=== PATIENT | male | born 2000 | race Caucasian/White ===

== ENCOUNTER 2021-01-12 16:09 | Emergency (ER) | payer SELFPAY ==
--- NOTE | ~2021-01-12 | CT_ITS ---
EXAMINATION: CT abdomen pelvis w con DATE: 01/12/2021 18:20 INDICATION: Right lower quadrant abdominal pain, loss of appetite for one week TECHNIQUE: Computed tomography (CT) of the abdomen and pelvis was performed with 100 cc Omnipaque 350 intravenous contrast. Automated exposure control and iterative reconstruction technique were employe d. Exam dose: 577.82 mGy-cm total exam DLP. COMPARISON: None. FINDINGS: Normal heart size. No pericardial or pleural effusion. The lung bases are clear. The liver, gallbladder, bile ducts, spleen, pancreas, pancreatic duct, and adrenal glands are unremar kable. Occasional small renal cysts are noted. No urinary tract calculus or hydroureteronephrosis. Normal caliber of the abdominal aorta. No intraperitoneal or retroperitoneal or pelvic mass lesion or adenopathy or ascites. Normal appendix. No bowel obstruction, bowel wall thickening and pneumatosis or intraperitoneal free air. Very small fat-containing umbilical hernia. Included skeletal structures are unremarkable. IMPRESSION: Normal appendix Reviewed, dictated and finalized at [facility] Reviewed, dictated and finalized at [facility]. IMPRESSION: Normal appendix
[2021-01-12 16:13] VITALS: PULSE 109; RESP 16; TEMP 36.7; O2SAT 99
--- NOTE | 2021-01-12 16:33 | ED.GENADULT ---
HPI - General Adult General Chief complaint: Abdominal Pain Stated complaint: RLQ ABD PAIN, NAUSEA Time Seen by Provider: 01/12/21 16:16 Source: patient, family and RN notes reviewed Mode of arrival: ambulatory Limitations: no limitations History of Present Illness HPI narrative: Patient is a 21-year-old male who presents to emergency department for evaluation of right lower quadrant abdominal pain that began over the last 2 days was seen by primary care today and referred to emergency department for concern for appendicitis patient notes that he last ate around 1:00 today a sandwich patient on arrival denies any diarrhea or urinary symptoms or similar occurrence in the past pain is localized to the right lower quadrant has not taken anything for his symptoms Related Data Allergies Allergy/AdvReac Type Severity Reaction Status Date / Time No Known Allergies Allergy Verified 06/29/19 08:48 Review of Systems Review of Systems: All systems reviewed & are unremarkable except as noted in HPI and below PMFSH Past Medical History Medical History History of gastroesophageal reflux (GERD) History of migraine Social History Social History Smoking status: Never smoker Substance use: never Exam Narrative: Exam Narrative: GENERAL: Well-appearing, well-nourished, and in no acute distress. HEAD: Normocephalic, atraumatic. EYES: PERRLA and EOMI. ENT: Nares clear, no rhinorrhea or epistaxis. Mucous membranes moist. CHEST: Clear to auscultation. No respiratory distress. No wheezes rales or rhonchi HEART: Regular rate and rhythm. No murmur heard. Normal peripheral pulses. ABDOMEN: Soft, right lower quadrant tenderness to palpation, nondistended, normal active bowel sounds. EXTREMITIES: Normal range of motion. No edema. SKIN: Warm, dry, no rash. NEURO: No focal deficits. Alert and oriented x3. PSYCH: Normal mood and affect. Course Course Emergency Course: Patient evaluated in the emergency department for right lower quadrant abdominal tenderness will be sent home with no high risks findings in the exam unsure as to theology of his symptoms he is afebrile nontoxic-appearing in no distress agreeing to follow with his primary care again for further evaluation Vital Signs Vital signs: Vital Signs Temperature 98.1 F 01/12/21 16:13 Pulse Rate 109 H 01/12/21 16:13 Respiratory Rate 16 01/12/21 16:13 Pulse Oximetry 99 01/12/21 16:13 Temperature 98.1 F 01/12/21 16:13 Pulse Rate 109 H 01/12/21 16:13 Respiratory Rate 16 01/12/21 16:13 Pulse Oximetry 99 01/12/21 16:13 Medical Decision Making MDM Narrative Medical decision making narrative: Patient presented with abdominal pain right lower quadrant in nature will be discharged home with outpatient follow-up with primary care aware of case findings treatment plan and diagnosis feeling better with interventions Vital Signs Vital Signs: Vital Signs Temperature 98.1 F 01/12/21 16:13 Pulse Rate 109 H 01/12/21 16:13 Respiratory Rate 16 01/12/21 16:13 Pulse Oximetry 99 01/12/21 16:13 Temperature 98.1 F 01/12/21 16:13 Pulse Rate 109 H 01/12/21 16:13 Respiratory Rate 16 01/12/21 16:13 Pulse Oximetry 99 01/12/21 16:13 Lab Data Result diagrams: 01/12/21 16:36 01/12/21 16:36 Labs: Lab Results 01/12/21 01/12/21 01/12/21 Range/Units 16:36 16:36 17:41 WBC 6.1 (4.5-10.0) K/mm3 RBC 5.46 (4.6-6.20) M/mm3 Hgb 16.0 (14.0-18.0) g/dL Hct 48.8 (42.0-52.0) % MCV 89.4 (80-100) fl MCH 29.3 (26-34) pg MCHC 32.8 (32-36) g/dl RDW 12.2 (11.5-14.5) % Plt Count 235 (150-375) k/mm3 MPV 9.6 (7.4-10.4) fl Immature Gran % (Auto) 0.2 (0-0.5) % Neut % (Auto) 61.1 (45.5-73.1) % Lymph % (Auto) 28.6 (18.3-44.2) % [place] % (Auto) 8.4 (2.6-8.5
[2021-01-12 16:45] LABS: Basophils Percent Auto 0.2 % (0.2-1.2); Eosinophils Absolute Auto 0.1 K/mm3 (0-0.3); Eosinophils Percent Auto 1.5 % (0-4.4); Hematocrit 48.8 % (42.0-52.0); Immature Granulocyte Absolute 0.01 K/mm3 (0.00-0.031); Immature Granulocyte Percent A 0.2 % (0-0.5); Lymphocytes Absolute Auto 1.74 K/mm3 (0.9-3.2); Lymphocytes Percent Auto 28.6 % (18.3-44.2); Mean Corpuscular HGB Conc 32.8 g/dl (32-36); Mean Corpuscular Hemoglobin 29.3 pg (26-34); Mean Corpuscular Volume 89.4 fl (80-100); Mean Platelet Volume 9.6 fl (7.4-10.4); Monocytes Absolute Auto 0.5 K/mm3 (0.1-0.6); Monocytes Percent Auto 8.4 % (2.6-8.5); Neutrophils Absolute Auto 3.7 K/mm3 (1.3-6.7); Neutrophils Percent Auto 61.1 % (45.5-73.1); Platelet Count Result 235 k/mm3 (150-375); Red Blood Count 5.46 M/mm3 (4.6-6.20); Red Cell Distribution Width 12.2 % (11.5-14.5); White Blood Count 6.1 K/mm3 (4.5-10.0)
[2021-01-12 17:19] LABS: Alanine Aminotransferase 27 U/L (4-50); Albumin Level 4.8 g/dL (3.5-5.1); Alkaline Phosphatase 64 U/L (38-126); Anion Gap 10 mmol/L (8-16); Aspartate Amino Transferase 36 U/L (17-59); Bilirubin,Total 0.5 mg/dL (0.2-1.3); Blood Urea Nitrogen 13 mg/dL (9-20); Calcium 9.9 mg/dL (8.4-10.2); Carbon Dioxide 28 mmol/L (22-30); Chloride 103 mmol/L (98-107); Estimated CRCL calculation 112 ml/min; Estimated Glomerular Filt Rate > 60; Glucose 77 mg/dL (75-110); Lipase 86 U/L (23-300); Sodium 141 mmol/L (137-145)
[2021-01-12] MEDS: ONDANSETRON INJ 4 MG/2 ML VIAL IV PUSH (17:52)
[2021-01-12] MEDS: FAMOTIDINE 20 MG/2 ML VIAL IV PUSH (17:52)
[2021-01-12] MEDS: SODIUM CHLORIDE 0.9% IV 1,000 ML 999 ML IV CONT (17:58)
[2021-01-12 18:04] LABS: Add Urine Microscopic? NO; Appearance Urine Clear (Clear); Bilirubin Urine Negative (Negative); Blood Urine Negative (Negative); Color Urine Yellow (Yellow); Glucose Urine UA Negative (Negative); Ketones Urine Negative (Negative); Leukocyte Esterase Ur Negative LEU/UL (Negative); Mucus Urine Rare /lpf; Nitrate Urine Negative (Negative); Protein Urine Negative (Negative); RBC Urine 0-2 /hpf (0-2); Specific Grav Ur 1.023 (1.001-1.035); Squamous Epithelial Cell Urine Rare /hpf (Few); Urobilinogen Urine Negative mg/dL (<2.0); WBC Urine 0-3 /hpf
[2021-01-12 20:34] VITALS: BP 142/92; PULSE 84; RESP 16; O2SAT 100
== END 2021-01-12 20:35 | disposition home or self-care (01) ==
PROVIDERS: Emergency Medicine; Emergency Provider Emergency Medicine; PCP Emergency Medicine
DX: R10.31 Right lower quadrant pain (principal); K21.9 Gastro-esophageal reflux disease without esophagitis
CPT/HCPCS: 36415; 74177; 80053; 81003; 83690; 85025; 96365; 96375; 99284; J0131; J2405; J7030; Q9967

== ENCOUNTER 2022-05-11 12:08 | Emergency (ER) | payer OTHER, SELFPAY ==
[2022-05-11 12:22] VITALS: BP 121/76; PULSE 98; RESP 18; TEMP 36.4; O2SAT 99
--- NOTE | 2022-05-11 12:56 | ED.GENADULT ---
HPI - General Adult General Chief complaint: Upper Respiratory Infection Stated complaint: vomiting, loss of smell and taste, headache Time Seen by Provider: 05/11/22 12:50 Source: patient, RN notes reviewed and old records reviewed Mode of arrival: ambulatory Limitations: no limitations History of Present Illness HPI narrative: 22-year-old male who presents to [facility] care with complaints of vomiting, loss of smell and taste, body aches and headache which all started this morning at 0930. Patient reports that he has not been vaccinated for COVID or for flu reports no known exposure. Patient's denies any fevers, chills,or sweats, denies any shortness of breath or any cough. Patient wants to be tested for COVID, states that he felt fine yesterday. Onset (ago): hour(s) (this am) Related Data Allergies Allergy/AdvReac Type Severity Reaction Status Date / Time No Known Allergies Allergy Verified 06/29/19 08:48 Review of Systems Review of Systems: CONSTITUTIONAL: Denies malaise, no chills, sweats, or fever. EYES: Denies visual changes, redness, or discharge. ENT: Reports rhinorrhea, congestion,no sinus pain, otalgia and sore throat. CARDIOVASCULAR: Denies chest pain, palpitations, or edema. RESPIRATORY: no reported cough.? Denies dyspnea. GASTROINTESTINAL: Denies abdominal pain, positive nausea and vomiting, no diarrhea SKIN: Denies rash or itching. MUSCULOSKELETAL: Positive myalgia. NEUROLOGIC positive headache. All systems reviewed & are unremarkable except as noted in HPI and below PMFSH Past Medical History Medical History History of gastroesophageal reflux (GERD) History of migraine Social History Social History Smoking status: Never smoker Substance use: never Comments At time of signature, agree with nursing past medical, surgical, social and family history. There is no relevant family history pertinent to the presenting complaint Exam Narrative: GENERAL: Well-appearing, well-nourished, and in no acute distress. HEAD: Normocephalic EYES: PERRLA, conjunctivae clear ENT: Nares clear, turbinates edematous and erythematous, clear discharge. Mucous membranes moist. TM pearly maki with dull light reflex bilaterally; no tragal tenderness. Oropharynx erythematous without lesions. Tonsils not enlarged and without exudate, no drooling, no hoarseness, no trismus, uvula midline. NECK: Supple. No lymphadenopathy CHEST: Clear to auscultation, breath sounds equal. No wheezing, rhonchi, rales, or stridor. No respiratory distress, speaks in full sentences. HEART: Regular rate and rhythm. No murmur heard. SKIN: Warm, dry, no rash. NEURO: Alert and oriented x3. PSYCH: Normal mood and affect Course Course Emergency Course: Patient is aware of diagnosis, understands and agrees to treatment plan.? Anticipatory guidance given.? Patient agrees to follow-up as directed and is aware of reasons to seek care at the emergency department. Portions of this record may have been created with voice recognition software Level of Care: Express Care Visit Vital Signs Vital signs: Vital Signs Temperature 36.4 C L 05/11/22 12:22 Pulse Rate 98 05/11/22 12:22 Respiratory Rate 18 05/11/22 12:22 Blood Pressure 121/76 05/11/22 12:22 Pulse Oximetry 99 05/11/22 12:22 Oxygen Delivery Room Air 05/11/22 12:22 Temperature 36.4 C L 05/11/22 12:22 Pulse Rate 98 05/11/22 12:22 Respiratory Rate 18 05/11/22 12:22 Blood Pressure 121/76 05/11/22 12:22 Pulse Oximetry 99 05/11/22 12:22 Oxygen Delivery Room Air 05/11/22 12:22 Reviewed Medical Decision Making Differential Diagnosis Differential Diagnosis: URI, influenza, COVID, gastritis,viral syndrome Medical Records Medical records reviewed: Yes I reviewed the external patient's medical records. Vital Signs Vital Sign
[2022-05-11 19:42] LABS: SARS-CoV-2 RNA PCR Negative
== END 2022-05-11 13:26 | disposition home or self-care (01) ==
PROVIDERS: Emergency Provider Registered Nurse; PCP Emergency Medicine
DX: J06.9 Acute upper respiratory infection, unspecified (principal); Z20.822 Contact with and (suspected) exposure to COVID-19; K21.9 Gastro-esophageal reflux disease without esophagitis
CPT/HCPCS: 87426; 87804; 99213; C9803; G0463; U0003; U0005

== ENCOUNTER 2022-10-17 19:16 | Emergency (ER) | payer SELFPAY ==
[2022-10-17 19:23] VITALS: BP 116/76; PULSE 108; RESP 20; TEMP 37.9; O2SAT 99
--- NOTE | 2022-10-17 19:39 | ED.URI ---
HPI - URI/Sore Throat General Chief Complaint: Upper Respiratory Infection Stated Complaint: Fever/Bodyaches Time Seen by Provider: 10/17/22 19:40 Source: patient, RN notes reviewed and old records reviewed Mode of arrival: ambulatory Limitations: no limitations History of Present Illness HPI Narrative: 22-year-old male presents to the [facility] with his girlfriend with complaints of fever, congestion, body aches since yesterday. Took ibuprofen just prior to arrival. Onset (ago): day(s) (1) Related Data Home Medications Medication Instructions Recorded Confirmed albuterol 90 mcg/actuation aerosol mcg inhalation 10/17/22 inhaler Allergies Allergy/AdvReac Type Severity Reaction Status Date / Time No Known Allergies Allergy Verified 10/17/22 19:23 Review of Systems Review of Systems: All systems reviewed & are unremarkable except as noted in HPI and below Constitutional: Constitutional: Reports no additional constitutional complaints Eyes: Eyes: Reports no additional eye complaints ENT: Reports as per HPI Cardiovascular: Cardiovascular: Reports no additional cardiovascular complaints, Denies chest pain and Denies dyspnea Respiratory: Respiratory: Reports as per HPI, Denies chest congestion, Reports cough and Denies dyspnea Gastrointestinal: Gastrointestinal: Reports no additional gastrointestinal complaints, Denies abdominal pain, Denies nausea and Denies vomiting Musculoskeletal: Musculoskeletal: Reports no additional musculoskeletal complaints Integumentary/Breasts: Skin/Breast: Reports system reviewed and no additional complaints, except as docu Neurologic: Reports system reviewed and no additional complaints, except as documented Psychiatric: Psychiatric: Reports no additional psychiatric complaints Allergic/Immunologic: Allergic/Immunologic: Reports no additional allergic/immunologic complaints PMFSH Past Medical History Medical History History of gastroesophageal reflux (GERD) History of migraine Social History Social History Smoking status: Never smoker Substance use: never Comments At the time of my signature, I reviewed and agree with the nursing past medical, surgical, social, and family history. There is no relevant family history pertinent to the patient complaint. Exam Const: General: cooperative, no acute distress, well developed, alert, ill appearing acutely (Mild), poor hygiene, tired appearing, uncomfortable and well nourished Nutritional Appearance: well nourished Orientation/consciousness: patient oriented x3 Limitations: no limitations HENMT: Head: normal to inspection Ears: hearing grossly normal bilaterally and external ears normal Face/Nose/Sinus: Normal external nose present, Normal nares present, Normal nasal mucous membranes and turbinates present and normal facial exam Face and sinus: normal facial exam Mouth: Yes Normal oral and palatal mucosa present, Yes lip normal and Yes moist mucous membranes Throat: posterior oropharynx normal and uvula midline Eyes: General: appearance normal, both eyes and all related structures Alignment and Position: alignment normal Periorbital: periorbital findings normal Conjunctivae: conjunctivae normal Pupils: Equal, round and reactive pupils present EOM: EOMs intact bilaterally Neck: Neck: normal visual inspection, full ROM, no lymphadenopathy and no meningeal signs Chest: Chest palpation & inspection: normal inspection of the chest Resp: Effort & Inspection: normal respiratory effort and able to speak in complete sentences Auscultation: clear to auscultation bilaterally, no crackles, no rales, no rhonchi and no wheezes Cardio: Rate: regular rate Rhythm: regular rhythm Back/Spine/Pelvis: Cervical Spine: cervical ROM normal Thoracic/Lumbar Spine: No thoracic spinal tenderness Skin: General skin exam: myra
== END 2022-10-17 19:46 | disposition home or self-care (01) ==
PROVIDERS: Emergency Provider Nurse Practitioner; PCP Emergency Medicine
DX: U07.1 COVID-19 (principal)
CPT/HCPCS: 87081; 87426; 87804; 87880; 99213; C9803; G0463

== ENCOUNTER 2023-02-15 16:35 | Emergency (ER) | payer SELFPAY ==
[2023-02-15 17:06] VITALS: BP 129/76; PULSE 88; RESP 16; TEMP 37.1; O2SAT 100
[2023-02-15 17:11] VITALS: BP 129/76; PULSE 88; RESP 16; TEMP 37.1; O2SAT 100
--- NOTE | 2023-02-15 17:16 | ED.URI ---
HPI - URI/Sore Throat General Chief Complaint: Upper Respiratory Infection Stated Complaint: throat issue,cough, stuffy head Time Seen by Provider: 02/15/23 17:10 Source: patient Mode of arrival: ambulatory Limitations: no limitations History of Present Illness HPI Narrative: Nitish is a 23-year-old male patient presenting to the clinic today with complaints of throat irritation, cough, stuffy head, nausea, and 1 episode of vomiting. He reports he started feel little short of breath last night around 9:00 Does have a history of asthma. Has a nonproductive cough. Is requesting a work note and a refill on his albuterol inhaler. No fever or chills. No known exposure to anyone with COVID, flu, or strep. MD elicited complaint: cough, sore throat and nasal congestion Related Data Home Medications Medication Instructions Recorded Confirmed albuterol 90 mcg/actuation aerosol mcg inhalation 10/17/22 inhaler Allergies Allergy/AdvReac Type Severity Reaction Status Date / Time No Known Allergies Allergy Verified 02/15/23 17:10 Review of Systems Review of Systems: Pertinent positives per HPI. Patient denies any fever, chills, rash, visual changes, dizziness, chest pain, palpitations, nausea, vomiting, diarrhea, constipation, abdominal pain, or any urinary issues. [facility] Past Medical History Medical History History of gastroesophageal reflux (GERD) History of migraine Social History Social History Smoking status: Never smoker Substance use: never Comments At the time of my signature, I reviewed and agree with the nursing past medical, surgical, social, and family history. There is no relevant family history pertinent to the patient complaint. Exam Narrative: General: Well-developed, well nourished, in no apparent distress Head: Normocephalic, atraumatic Eyes: Pupils equally round and reactive to light bilaterally, EOM intact, sclera and conjunctive clear, no discharge, lids normal Ears: TMs intact and clear, ear canals clear, no drainage, grossly hearing normal. Nose: Nares patent, clear nasal discharge, no inflammation, no sinus tenderness. Mouth: Oral pharynx mildly red without lesions or masses, good dentition, MMM. Neck: Supple, trachea midline, no enlargement of anterior or posterior cervical nodes, no thyroid masses or goiter palpable. Cardio: Regular rate and rhythm, s1 and s2 normal, no murmur appreciated. Resp: Clear to auscultation bilaterally, no rhonchi, rales, wheezing or rubs Course Course Emergency Course: Portions of this record may have been created with voice recognition software. Level of Care: Express Care Visit Vital Signs Vital signs: Vital Signs Temperature 37.1 C 02/15/23 17:06 Pulse Rate 88 02/15/23 17:06 Respiratory Rate 16 02/15/23 17:06 Blood Pressure 129/76 02/15/23 17:06 Pulse Oximetry 100 02/15/23 17:06 Oxygen Delivery Room Air 02/15/23 17:06 Temperature 37.1 C 02/15/23 17:11 Pulse Rate 88 02/15/23 17:11 Respiratory Rate 16 02/15/23 17:11 Blood Pressure 129/76 02/15/23 17:11 Pulse Oximetry 100 02/15/23 17:11 Oxygen Delivery Room Air 02/15/23 17:11 Vital signs reviewed MDM - URI/Sore Throat MDM Narrative Medical decision making narrative: At the time of visit patient is resting comfortably on the exam table. I suspected go URI with acute nausea and vomiting. Will send in prescription for some Zofran and albuterol inhaler. Supportive measures were discussed with the patient he voiced understanding discharge instructions agrees to treatment plan. Differential Diagnosis Differential diagnosis: Likely upper respiratory infection, otitis media, sinusitis, viral infection, bronchitis, influenza, pharyngitis and other (COVID) Discharge Plan Discharge Clinical Impression: Upper respiratory in
== END 2023-02-15 17:25 | disposition home or self-care (01) ==
PROVIDERS: Emergency Provider Nurse Practitioner Family; PCP Emergency Medicine
DX: J06.9 Acute upper respiratory infection, unspecified (principal); R11.2 Nausea with vomiting, unspecified; K21.9 Gastro-esophageal reflux disease without esophagitis
CPT/HCPCS: 99213; G0463

== ENCOUNTER 2023-04-02 11:53 | Emergency (ER) | payer OTHER, SELFPAY ==
[2023-04-02 12:00] VITALS: BP 137/83; PULSE 69; RESP 20; TEMP 36.7; O2SAT 98
--- NOTE | 2023-04-02 12:39 | ED.GENADULT ---
HPI - General Adult General Chief complaint: Wound/Laceration <Osmel Walters PA-C - Last Filed: 04/02/23 18:14> Stated complaint: L INDEX FINGER LAC <ANDIE Patel Last Filed: 04/02/23 18:14> Time Seen by Provider: 04/02/23 12:13 <Osmel Walters PA-C - Last Filed: 04/02/23 18:14> Source: patient <ANDIE Patel Last Filed: 04/02/23 18:14> Mode of arrival: ambulatory <Osmel Walters PA-C - Last Filed: 04/02/23 18:14> Limitations: no limitations <ANDIE Patel Last Filed: 04/02/23 18:14> History of Present Illness HPI narrative: This is a 23-year-old male who presents to the ED with chief complaint of left index finger laceration occurring just prior to arrival. Patient states he was cutting vegetables with a kitchen knife when he accidentally hit to the nail of his index finger. He reports a lot of bleeding at the time but bleeding controlled here in the ED. He denies any further site of pain or injury. Denies numbness or weakness. States his tetanus is up-to-date. <Osmel Walters PA-C - Last Filed: 04/02/23 18:14> Related Data Home medications: Home Medications Medication Instructions Recorded Confirmed albuterol 90 mcg/actuation aerosol mcg inhalation 10/17/22 inhaler <Osmel Walters PA-C Last Filed: 04/02/23 18:14> Allergies/adverse reactions: Allergies Allergy/AdvReac Type Severity Reaction Status Date / Time No Known Allergies Allergy Verified 04/02/23 12:03 <ANDIE Patel Last Filed: 04/02/23 18:14> Review of Systems Review of Systems: All systems as dictated in HPI <ANDIE Patel Last Filed: 04/02/23 18:14> [facility] Past Medical History Medical History: Medical History History of gastroesophageal reflux (GERD) History of migraine <Osmel Walters PA-C - Last Filed: 04/02/23 18:14> Social History Social History: Social History Smoking status: Never smoker Substance use: never <Osmel Walters PA-C - Last Filed: 04/02/23 18:14> Exam Narrative: GENERAL: Well-appearing, well-nourished, and in no acute distress. HEAD: Normocephalic, atraumatic. EYES: PERRLA and EOMI. ENT: Nares clear, no rhinorrhea or epistaxis. Mucous membranes moist. Oropharynx without tonsillar hypertrophy exudate or other lesions. NECK: Supple. No adenopathy or masses. CHEST: No respiratory distress. Clear to auscultation. No wheezes rales or rhonchi HEART: Regular rate and rhythm. No murmur heard. Normal peripheral pulses. ABDOMEN: Soft, nontender, nondistended, normal active bowel sounds. MSK: Normal range of motion. No edema. SKIN: Left index finger shows nail avulsion. The radial aspect distal portion of the nail is missing. There is underlying spot of bleeding but no underlying laceration. It appears to be more of an abrasion to the nailbed. The base of the nail and nailbed is fully intact at the cuticle. Bleeding controlled with gauze. Cap refill intact. NEURO: Alert and oriented x3. No focal deficits. PSYCH: Normal mood and affect. <Osmel Walters PA-C - Last Filed: 04/02/23 18:14> Course [employer]ARN[employer] SUPERVISOR/PA Physician Supervision This visit was performed by both a physician and an APC. I performed all aspects of the MDM as documented. <Karen Mullins MD - Last Filed: 04/02/23 20:10> Vital Signs Vital signs: Vital Signs Temperature 98.1 F 04/02/23 12:00 Pulse Rate 69 04/02/23 12:00 Respiratory Rate 20 04/02/23 12:00 Blood Pressure 137/83 04/02/23 12:00 Pulse Oximetry 98 04/02/23 12:00 Oxygen Delivery Room Air 04/02/23 12:00 Temperature 97.6 F 04/02/23 13:04 Pulse Rate 78 04/02/23 13:04 Respiratory Rate 16 04/02/23 13:04 Blood Pressure 124/76 04/02/23 13:04 Pulse Oximetry 98 04/02/23 13:04 Oxygen Delivery Room Air 04/02/23 12:
[2023-04-02 13:04] VITALS: BP 124/76; PULSE 78; RESP 16; TEMP 36.4; O2SAT 98
== END 2023-04-02 13:10 | disposition home or self-care (01) ==
LOC: ANHED 13:06
PROVIDERS: Emergency Provider Physician Assistant; PCP Emergency Medicine
DX: S61.311A Laceration without foreign body of left index finger with damage to nail, initial encounter (principal); W26.0XXA Contact with knife, initial encounter; K21.9 Gastro-esophageal reflux disease without esophagitis
CPT/HCPCS: 99283

== ENCOUNTER 2023-09-13 15:00 | Emergency (ER) | payer BC, SELFPAY ==
[2023-09-13 15:12] VITALS: BP 111/73; PULSE 99; RESP 16; TEMP 37.3; O2SAT 98
--- NOTE | 2023-09-13 15:41 | ED.URI ---
HPI - URI/Sore Throat General Chief Complaint: Upper Respiratory Infection Stated Complaint: Sore Throat History of Present Illness HPI Narrative: 23-year-old male presented for complaint of nasal congestion, sore throat, cough and body aches. Onset 2 days. States cough is productive of brown mucus. Denies wheezing, nausea, vomiting diarrhea, fevers. Took Tylenol cold Sinus. Related Data Allergies Allergy/AdvReac Type Severity Reaction Status Date / Time No Known Allergies Allergy Verified 09/13/23 15:02 Review of Systems Review of Systems: CONSTITUTIONAL: Denies fever, chills, or sweats. EYES: Denies visual changes, redness, or discharge. ENT: Reports rhinorrhea, congestion, sore throat. CARDIOVASCULAR: Denies chest pain, palpitations, or edema. RESPIRATORY: Denies dyspnea. GASTROINTESTINAL: Denies abdominal pain, nausea, vomiting, or diarrhea. SKIN: Denies rash, itching, or wounds. MUSCULOSKELETAL: Denies back pain, joint pain NEUROLOGIC: Denies headache [facility] Past Medical History Medical History History of gastroesophageal reflux (GERD) History of migraine Social History Social History Smoking status: Never smoker Substance use: never Exam Narrative: GENERAL: well-appearing, no acute distress. EYES: conjunctivae clear ENT: Mucous membranes moist. TMs pearly maki with normal light reflex bilaterally; no tragal tenderness. Oropharynx mildly erythematous without lesions. Tonsils not enlarged and without exudate. No drooling, no hoarseness, no trismus, uvula midline. No tripod positioning, hot potato voice, or soft palate swelling. NECK: Supple. No lymphadenopathy CHEST: Clear to auscultation, breath sounds equal. No respiratory distress, speaks in full sentences. HEART: Regular rate and rhythm. No murmur heard. SKIN: Warm, dry, no rash. NEURO: Alert and oriented x3. Course Course Emergency Course: Patient is aware of diagnosis, understands and agrees to treatment plan. Anticipatory guidance given. Patient agrees to follow-up as directed and is aware of reasons to seek care at the emergency department. Portions of this record may have been created with voice recognition software Level of Care: Express Care Visit Vital Signs Vital signs: Vital Signs Temperature 99.2 F 09/13/23 15:12 Pulse Rate 99 09/13/23 15:12 Respiratory Rate 16 09/13/23 15:12 Blood Pressure 111/73 09/13/23 15:12 Pulse Oximetry 98 09/13/23 15:12 Oxygen Delivery Room Air 09/13/23 15:12 Temperature 99.2 F 09/13/23 15:12 Pulse Rate 99 09/13/23 15:12 Respiratory Rate 16 09/13/23 15:12 Blood Pressure 111/73 09/13/23 15:12 Pulse Oximetry 98 09/13/23 15:12 Oxygen Delivery Room Air 09/13/23 15:12 MDM - URI/Sore Throat MDM Narrative Medical decision making narrative: Neg flu, covid, and strep result reviewed with pt. Advise supportive treatments. Patient is appropriate for outpatient treatment and follow-up. Differential Diagnosis Differential diagnosis: Likely upper respiratory infection, viral infection and pharyngitis Lab Data Labs: Influenza A Screen Negative Reference Range: Negative Influenza B Screen Negative Reference Range: Negative Strep Screen Presumptive Negative *(Reference Range: Negative)* Discharge Plan Discharge Clinical Impression: Upper respiratory infection Patient Disposition: Home, Self-Care Condition: Stable Instructions: Antibiotic Form, Upper Respiratory Infection (ED) Additional Instructions: Flu and COVID negative Rapid strep swab was negative today You will be notified in a few days if the culture comes back positive for st
== END 2023-09-13 15:52 | disposition home or self-care (01) ==
PROVIDERS: Emergency Provider Nurse Practitioner Family; PCP Emergency Medicine
DX: J06.9 Acute upper respiratory infection, unspecified (principal); Z20.822 Contact with and (suspected) exposure to COVID-19
CPT/HCPCS: 87081; 87426; 87804; 87880; 99213; G0463